=== PATIENT | male | born 1990 | race Caucasian/White ===

== ENCOUNTER 2016-12-01 21:01 | Emergency (ER) | payer SELFPAY ==
--- NOTE | 2016-12-01 21:31 | EDM.PDOC ---
ED HPI GENERAL MEDICAL PROBLEM - General Chief Complaint: Skin Complaint Stated Complaint: POSSIBLE CYST/LOWER ABDOMEN Time Seen by Provider: 12/01/16 21:26 Source of Information: Reports: Patient History Limitations: Reports: No Limitations - History of Present Illness INITIAL COMMENTS - FREE TEXT/NARRATIVE: HISTORY AND PHYSICAL: []26-year-old male presents with concerns over a cystic area to the lower abdomen History of Present Illness: []This has been present for at least 4 days some blood and green exudate was relieved yesterday Review of Systems: As per history of present illness and below otherwise all systems reviewed and negative. Past medical history: As per history of present illness and as reviewed below otherwise noncontributory. Surgical history: As per history of present illness and as reviewed below otherwise noncontributory. Social history: No reported history of drug or alcohol abuse. Family history: As per history of present illness and as reviewed below otherwise noncontributory. Physical exam: Alert and oriented gentleman who is in quite a bit of pain HEENT: Atraumatic, normocehpalic, pupils reactive, negative for conjunctival pallor or scleral icterus, mucous membranes moist, throat clear, neck supple, nontender, trachea midline. Lungs: Clear to auscultation, breath sounds equal bilaterally, chest non tender. Heart: S1S2, regular, negative for clicks, rubs, or JVD. Abdomen: Soft, nondistended, tender to lower pelvic area he has shaved in the past as a folliculitis present there is a large area 4 cm x 3 cm of erythema and tenderness. Negative for masses or hepatossplenmegaly. Negative for costovertebral tenderness. Pelvis: Stable nontender. Genitourinary: Deferred. Rectal: Deferred Extremities: Atraumatic, negative for cords or calf pain. Neurovascular unremarkable. Neuro: Awake, alert, oriented. Cranial nerves II through XII unremarkable. Cerebellum unremarkable. Motor and sensory unremarkable throughout. Exam nonfocal. Diagnostics: [] Therapeutics: [] Impression: [#1 shaving folliculitis #2 abscess] Plan: [Amoxicillin 875 twice a day 10 days Moist heat to this area to help draw it together Return when it starts coming to ahead and pustular material is noted] Definitive disposition and diagnosis as appropriate pending reevaluation and review of above. Onset: Gradual Duration: Day(s): (4), Getting Worse Location: Reports: Abdomen lower abd Pain Score (Numeric/FACES): 7 - Related Data Allergies Allergy/AdvReac Type Severity Reaction Status Date / Time latex Allergy Hives Verified 12/01/16 21:20 Penicillins Allergy Anaphylactic Verified 12/01/16 21:20 Shock Home Meds: Home Meds . [No Known Home Meds] 12/21/13 [History] Past Medical History - Past Health History Medical/Surgical History: Denies Medical/Surgical History - Past Surgical History Musculoskeletal Surgical History: Reports: Other (See Below) Other Musculoskeletal Surgeries/Procedures:: right thumb surgery,. right ankle surgery Social & Family History - Tobacco Use Smoking Status *Q: Never Smoker Years of Tobacco use: 10 Second Hand Smoke Exposure: No - Alcohol Use Days Per Week of Alcohol Use: 0 - Recreational Drug Use Recreational Drug Use: No ED ROS GENERAL - Review of Systems Review Of Systems: ROS reveals no pertinent complaints other than HPI. ED EXAM, SKIN/RASH Exam: See Below (see dictation) Course - Vital Signs Last Recorded V/S: Last Vital Signs Temp 36.9 C 12/01/16 21:20 Pulse 96 12/01/16 21:20 Resp 18 12/01/16 21:20 BP 161/94 H 12/01/16 21:20 Pulse Ox 100 12/01/16 21:20 Departure - Departure Time of Disposition: 21:30 Disposition: Home, Self-Care 01 Condition: good Clinical Impression: Abscess, Folliculitis - Discharge Information Forms: ED Department Discharge Additional Instructions: The following information is given to patients seen in the emergency department who are being discharged to home. This information is to outline your options for follow-up care. We provide all patients seen in our emergency department with a follow-up referral. The need for follow-up, as well as the timing and circumstances, are variable depending upon the specifics of your emergency department visit. If you don't have a primary care physician on staff, we will provide you with a referral. We always advise you to contact your personal physician following an emergency department visit to inform them of the circumstance of the visit and for follow-up with them and/or the need for any referrals to a consulting specialist. The emergency department will also refer you to a specialist when appropriate. This referral assures that you have the opportunity for followup care with a specialist. All of these measure are taken in an effort to provide you with optimal care, which includes your followup. Under all circumstances we always encourage you to contact your private physician who remains a resource for coordinating your care. When calling for followup care, please make the office aware that this follow-up is from your recent emergency room visit. If for any reason you are refused follow-up, please contact the [facility] emergency department at and asked to speak to the emergency department charge nurse. Moist heat to this area to help draw the abscess together Return in 3 days for reevaluation
[2016-12-02 00:09] VITALS: BP 150/85
== END 2016-12-01 21:51 | disposition home or self-care (01) ==
LOC: MW.ED 21:01
DX: L02.211 Cutaneous abscess of abdominal wall (principal); L73.9 Follicular disorder, unspecified; Z98.890 Other specified postprocedural states; Z91.040 Latex allergy status; Z88.0 Allergy status to penicillin
CPT/HCPCS: 99282

== ENCOUNTER 2016-12-06 08:09 | Day surgery (SDC) | payer SELFPAY ==
[~2016-12-06 08:09] MED LIST: Bupivacaine 0.5% 30 ML SDV ONE; Lactated Ringers 1,000 ML IV SCH; Sodium Chloride 0.9% 10 ML Syringe FLUSH PRN; Sodium Chloride 0.9% 2.5 ML Syringe FLUSH PRN; cefOXitin 1 GM in Premix Bag 1 BAG IV ONE
[2016-12-06] MEDS ORDERED: Propofol 200 MG/20 ML SDV ONE (08:25)
[2016-12-06] MEDS ORDERED: Rocuronium 10 MG/ML 10 ML Syringe ONE (08:25)
[2016-12-06] MEDS ORDERED: Succinylcholine/Normal Saline 200 MG/10 ML Syringe ONE (08:25)
[2016-12-06] MEDS ORDERED: Lidocaine 2% 5 ML SDV ONE (08:25)
[2016-12-06] MEDS ORDERED: fentaNYL 100 MCG/2 ML SDV ONE (08:25)
[2016-12-06] MEDS ORDERED: Midazolam 1 MG/ML 2 ML SDV ONE (08:25)
--- NOTE | 2016-12-06 08:48 | PCM.PREANE ---
Preanesthetic Assessment - Anesthesia/Transfusion/Family Hx Anesthesia History: Prior Anesthesia Without Reaction Family History of Anesthesia Reaction: No Transfusion History: No Prior Transfusion(s) Intubation History: Unknown - Review of Systems General: No Symptoms Pulmonary: No Symptoms Cardiovascular: No Symptoms Gastrointestinal: No symptoms Neurological: No Symptoms Other: Reports: None - Physical Assessment Height: 1.73 m Weight: 77.564 kg ASA Class: 1 Mental Status: Alert & Oriented x3 Airway Class: Mallampati = 2 Dentition: Reports: Normal Dentition Thyro-Mental Finger Breadths: 3 Mouth Opening Finger Breadths: 2 ROM/Head Extension: Full Lungs: Clear to auscultation, Normal respiratory effort Cardiovascular: Regular Rate, Regular Rhythm - Allergies Allergies/Adverse Reactions: Allergies Allergy/AdvReac Type Severity Reaction Status Date / Time latex Allergy Hives Verified 12/01/16 21:20 Penicillins Allergy Anaphylactic Verified 12/01/16 21:20 Shock - Blood Blood Available: No - Anesthesia Plan Pre-Op Medication Ordered: None - Acknowledgements Anesthesia Type Planned: MAC Pt an Appropriate Candidate for the Planned Anesthesia: Yes Alternatives and Risks of Anesthesia Discussed w Pt/Guardian: Yes Pt/Guardian Understands and Agrees with Anesthesia Plan: Yes PreAnesthesia Questionnaire - Past Health History Medical/Surgical History: Denies Medical/Surgical History HEENT History: Reports: Allergic Rhinitis, Other (See Below) (h/o sinusitis) Cardiovascular History: Reports: None Respiratory History: Reports: None Gastrointestinal History: Reports: None Genitourinary History: Reports: None Musculoskeletal History: Reports: Fracture Other Musculoskeletal History: hx of fx ankle Neurological History: Reports: None Psychiatric History: Reports: None Endocrine/Metabolic History: Reports: None Hematologic History: Reports: None Immunologic History: Reports: None Oncologic (Cancer) History: Reports: None Dermatologic History: Reports: None - Past Surgical History Head Surgeries/Procedures: Reports: None HEENT Surgical History: Reports: None Cardiovascular Surgical History: Reports: None Respiratory Surgical History: Reports: None GI Surgical History: Reports: None Male Surgical History: Reports: None Endocrine Surgical History: Reports: None Neurological Surgical History: Reports: None Musculoskeletal Surgical History: Reports: Amputation, ORIF Other Musculoskeletal Surgeries/Procedures:: ORIF right ankle with pin placement , repair if partial amputation of thumb, then partial amputation of thumb with skin graft Oncologic Surgical History: Reports: None Dermatological Surgical History: Reports: None - SUBSTANCE USE Smoking Status *Q: Never Smoker Second Hand Smoke Exposure: No Days Per Week of Alcohol Use: 0 Recreational Drug Use History: No - HOME MEDS Home Medications: Home Meds . [No Known Home Meds] 12/21/13 [History] Clindamycin HCl 300 mg PO Q6H 12/05/16 [History] oxyCODONE HCl/Acetaminophen [Percocet 5-325 mg Tablet] 1 tab PO Q6H PRN [History] - CURRENT (IN HOUSE) MEDS Current Meds: Current Medications Lactated Ringer's (Ringers, Lactated) 1,000 mls @ 125 mls/hr IV ASDIRECTED RAMILA Last Admin: 12/06/16 08:35 Dose: 125 mls/hr Sodium Chloride (Saline Flush) 10 ml FLUSH ASDIRECTED PRN PRN Reason: Keep Vein Open Sodium Chloride (Saline Flush) 2.5 ml FLUSH ASDIRECTED PRN PRN Reason: Keep Vein Open Discontinued Medications Bupivacaine HCl (Marcaine 0.5%) Confirm Administered Dose 30 ml .ROUTE .STK-MED ONE Stop: 12/06/16 06:53 Fentanyl (Sublimaze) Confirm Administered Dose 100 mcg .ROUTE .STK-MED ONE Stop: 12/06/16 08:26 Cefoxitin Sodium 1 gm/ Premix 50 mls @ 100 mls/hr IV ONETIME ONE Stop: 12/05/16 17:40 Lidocaine (Xylocaine-Mpf 2%) Confirm Administered Dose 5 ml .ROUTE .STK-MED ONE Stop: 12/06/16 08:26 Midazolam HCl (Versed 1 Mg/Ml) Confirm Administered Dose 2 mg .ROUTE .STK-MED ONE Stop: 12/06/16 08:26 Propofol (Diprivan 20 Ml) Confirm Administered Dose 200 mg .ROUTE .STK-MED ONE Stop: 12/06/16 08:26 Rocuronium [place] (Zemuron) Confirm Administered Dose 100 mg .ROUTE .STK-MED ONE Stop: 12/06/16 08:26 Succinylcholine Chloride (Succinylcholine In Ns Pf) Confirm Administered Dose 200 mg .ROUTE .STK-MED ONE Stop: 12/06/16 08:26
[2016-12-06] MEDS ORDERED: Lidocaine 1% with EPINEPHrine 1:100,000 20 ML MDV ONE (10:09)
[2016-12-06] MEDS ORDERED: Ketorolac 30 MG/ML SDV ONE (10:44)
[2016-12-06] MEDS ORDERED: Ondansetron 4 MG/2 ML SDV ONE (10:44)
--- NOTE | 2016-12-06 11:06 | PCM.OPNOTE ---
- General Post-Op/Procedure Note Date of Surgery/Procedure: 12/06/16 Operative Procedure(s): Incision and drainage of suprapubic abscess Findings: 4 x 3 cm abscess in the subcutaenous space over the suprapubic area. Pre Op Diagnosis: abscess Post-Op Diagnosis: same Anesthesia Technique: MAC Primary Surgeon: Emilia Kaminski Condition: Good
[2016-12-06 11:31] VITALS: BP 121/76
--- NOTE | 2016-12-06 13:35 | OR ---
SURGEON: AHSAN STACK MD DATE OF PROCEDURE: 12/06/2016 PREOPERATIVE DIAGNOSIS: Suprapubic abscess. POSTOPERATIVE DIAGNOSIS: Suprapubic abscess. PROCEDURE PERFORMED: Incision and drainage of suprapubic abscess. ANESTHESIA: General endotracheal anesthesia. FLUIDS: See anesthesia record. ESTIMATED BLOOD LOSS: 5 mL. FINDINGS: A 3 x 4 cm cavity filled with purulent material. This was within the subcutaneous space. COMPLICATIONS: None. INDICATIONS: The patient is a 26-year-old male, who regularly shaves his pubic area. Last week, he developed redness, swelling, pain, and erythema over the site. He presented to the emergency room and was given antibiotics to treat the wound. He followed up with me two days ago in clinic and was found to have increased redness, swelling, and no active drainage from the wound site. The area was too tender to drain in office, so I switched the patient's antibiotics and scheduled him to have an incision and drainage under monitored anesthesia care. The patient and I discussed the procedure as well as expected perioperative course. We discussed the risks, including bleeding, increased infection as well as damage to surrounding structures. The patient verbalized understanding and wishes to proceed. PROCEDURE IN DETAIL: The patient was brought into the operating room and placed on the OR table in supine position. A time-out was completed verifying the patient's name, age, date of , allergies, and procedure to be performed. Monitored anesthesia care was induced. The lower abdomen and groin were prepped and draped in the usual standard fashion. I anesthetized the area overlying the abscess cavity with 1% lidocaine. A hemostat was then inserted into the pinpoint area of drainage used to explore the wound cavity. It tracked medially. I made a 4 cm incision over the top of this abscess cavity using a 15 blade. A large amount of purulent material with cellular debris was encountered. This was suctioned out. Wound cultures were obtained previously in the clinic, so no cultures were obtained today. I made a vertical incision along the midline of my horizontal incision. I took off the edges of the cruciate incision I had made to open up the roof of the cavity. The wound was debrided bluntly and copiously irrigated with normal saline. Cautery was used to obtain hemostasis. The wound was then packed with 1 inch iodoform gauze and covered it with a large Tegaderm. All counts were complete and correct at the end the case. The patient tolerated the procedure well and was taken to the PACU in stable condition. DAMARIS ADLER /[id number] MTDD
== END 2016-12-06 11:30 | disposition home or self-care (01) ==
LOC: MERGE 08:09 → MW.SDS 08:09 → EEVIPCON 08:09 → MW.SDS 11:30
PROVIDERS: ATTEND Surgery
PROC: 0J9B0ZZ Drainage of Perineum Subcutaneous Tissue and Fascia, Open Approach (ICD-10-PCS; principal; 2016-12-06)
DX: L02.818 Cutaneous abscess of other sites (principal); J32.9 Chronic sinusitis, unspecified; Z88.0 Allergy status to penicillin; Z91.040 Latex allergy status; Z79.51 Long term (current) use of inhaled steroids; Z98.890 Other specified postprocedural states
CPT/HCPCS: 10060; J0694; J1885; J2250; J2405; J3010; J7120; 00400; J2704

== ENCOUNTER 2019-04-23 19:49 | Emergency (ER) | payer BC ==
--- NOTE | 2019-04-23 20:38 | EDM.PDOC ---
ED HPI GENERAL MEDICAL PROBLEM - General Chief Complaint: ENT Problem Stated Complaint: SINUS INFECTION Time Seen by Provider: 04/23/19 19:58 Source of Information: Reports: Patient History Limitations: Reports: No Limitations - History of Present Illness INITIAL COMMENTS - FREE TEXT/NARRATIVE: HISTORY AND PHYSICAL: History of present illness: Patient is a 28-year-old male presents to the ED today with concern of sinus pain and congestion 2 weeks. Patient states about a week and a half ago he was seen at [facility] and given azithromycin. Patient states he initially had some relief from the sinuses but the symptoms quickly returned with a stuffy nose, sinus pain and congestion. Patient states he does have a history of sinus infections in the past. Patient states he also has a sore throat but does feel that his sinuses are dripping down the back of his throat causing some of his symptoms. Patient states he's been taking [id number] cold medication without relief of symptoms. Patient denies any other symptoms or concerns. Patient denies fever, chills, chest pain, shortness of breath, or cough. Denies headache, neck stiff ness, change in vision, syncope, or near syncope. Denies nausea, vomiting, abdominal pain, diarrhea, constipation, or dysuria. Has not noted any blood in urine or stool. Patient has been eating and drinking appropriately. Review of systems: As per history of present illness and below otherwise all systems reviewed and negative. Past medical history: As per history of present illness and as reviewed below otherwise noncontributory. Surgical history: As per history of present illness and as reviewed below otherwise noncontributory. Social history: See social history for further information Family history: As per history of present illness and as reviewed below otherwise noncontributory. Physical exam: General: Patient is alert, oriented, and in no acute distress. Patient sitting comfortably on exam table. HEENT: Atraumatic, normocephalic, pupils equal and reactive bilaterally, negative for conjunctival pallor or scleral icterus, mucous membranes moist, TMs normal bilaterally, throat clear, neck supple, nontender, trachea midline. No drooling or trismus noted. No meningeal signs. No hot potato voice noted. Patient has frontal and maxillary sinus pain to palpation. Lungs: Clear to auscultation, breath sounds equal bilaterally, chest nontender. Heart: S1S2, regular rate and rhythm without overt murmur Abdomen: Soft, nondistended, nontender. Negative for masses or hepatosplenomegaly. Negative for costovertebral tenderness. Pelvis: Stable nontender. Genitourinary: Deferred. Rectal: Deferred. Skin: Intact, warm, dry. No lesions or rashes noted. Extremities: Atraumatic, negative for cords or calf pain. Neurovascular unremarkable. Neuro: Awake, alert, oriented. Cranial nerves II through XII unremarkable. Cerebellum unremarkable. Motor and sensory unremarkable throughout. Exam nonfocal. Notes: Discussed the importance for follow-up with a primary care provider. Voices understanding and is agreeable to plan of care. Denies any further questions or concerns at this time. Diagnostics: Strep, Influenza Therapeutics: None Prescription: Doxycycline Impression: Acute sinusitis, frontal and maxillary Plan: 1. Take medication as prescribed. Also use [id number] Flonase as directed and as discussed. 2. You can also use ibuprofen and Tylenol as directed for pain and discomfort. 3. Follow up with her primary care provider as discussed. Return to the ED as needed and as discussed. Definitive disposition and diagnosis as appropriate pending reevaluation and review of above. throat Pain Score (Numeric/FACES): 6 - Related Data Allergies Allergy/AdvReac Type Severity Reaction Status Date / Time latex Allergy Hives Verified 12/01/16 21:20 Penicillins Allergy Anaphylactic Verified 12/01/16 21:20 Shock Home Meds: Home Meds valACYclovir [Valtrex] 0 mg PO ASDIRECTED 04/23/19 [History] Past Medical History - Past Health History Medical/Surgical History: Denies Medical/Surgical History HEENT History: Reports: Allergic Rhinitis Cardiovascular History: Reports: None Respiratory History: Reports: None Gastrointestinal History: Reports: None Genitourinary History: Reports: None Musculoskeletal History: Reports: None Other Musculoskeletal History: hx of fx ankle Neurological History: Reports: None Psychiatric History: Reports: None Endocrine/Metabolic History: Reports: None Hematologic History: Reports: None Immunologic History: Reports: None Oncologic (Cancer) History: Reports: None Dermatologic History: Reports: None - Past Surgical History Head Surgeries/Procedures: Reports: None HEENT Surgical History: Reports: Tonsillectomy Cardiovascular Surgical History: Reports: None Respiratory Surgical History: Reports: None GI Surgical History: Reports: None Male Surgical History: Reports: None Endocrine Surgical History: Reports: None Neurological Surgical History: Reports: None Musculoskeletal Surgical History: Reports: Amputation, Other (See Below), ORIF Oncologic Surgical History: Reports: None Dermatological Surgical History: Reports: None Social & Family History - Family History Family Medical History: Noncontributory - Tobacco Use Smoking Status *Q: Never Smoker Second Hand Smoke Exposure: No - Caffeine Use Caffeine Use: Reports: Soda - Recreational Drug Use Recreational Drug Use: No ED ROS GENERAL - Review of Systems Review Of Systems: ROS reveals no pertinent complaints other than HPI. ED EXAM, GENERAL - Physical Exam Exam: See Below (See dictation) Course - Vital Signs Last Recorded V/S: Last Vital Signs Temp 97.9 F 04/23/19 20:03 Pulse 77 04/23/19 20:03 Resp 18 04/23/19 20:03 BP 136/92 H 04/23/19 20:03 Pulse Ox 97 04/23/19 20:03 - Orders/Labs/Meds Orders: Active Orders 24 hr Category Date Time Status CULTURE STREP A CONFIRMATION [] Stat Lab 04/23/19 20:12 Results STREP SCRN A RAPID W CULT CONF [RM] Stat Lab 04/23/19 20:12 Results Departure - Departure Time of Disposition: 20:47 Disposition: Home, Self-Care 01 Clinical Impression: Acute sinusitis Qualifiers: Sinusitis location: maxillary Recurrence: not specified as recurrent Qualified Code(s): J01.00 - Acute maxillary sinusitis, unspecified - Discharge Information Referrals: PCP,None [Primary Care Provider] - Forms: ED Department Discharge Additional Instructions: The following information is given to patients seen in the emergency department who are being discharged to home. This information is to outline your options for follow-up care. We provide all patients seen in our emergency department with a follow-up referral. The need for follow-up, as well as the timing and circumstances, are variable depending upon the specifics of your emergency department visit. If you don't have a primary care physician on staff, we will provide you with a referral. We always advise you to contact your personal physician following an emergency department visit to inform them of the circumstance of the visit and for follow-up with them and/or the need for any referrals to a consulting specialist. The emergency department will also refer you to a specialist when appropriate. This referral assures that you have the opportunity for follow-up care with a specialist. All of these measure are taken in an effort to provide you with optimal care, which includes your follow-up. Under all circumstances we always encourage you to contact your private physician who remains a resource for coordinating your care. When calling for follow-up care, please make the office aware that this follow-up is from your recent emergency room visit. If for any reason you are refused follow-up, please contact the [facility] Emergency Department at and asked to speak to the emergency department charge nurse. [facility] [address] [place] [id number] [address] [address] 1. Take medication as prescribed. Also use [id number] Flonase as directed and as discussed. 2. You can also use ibuprofen and Tylenol as directed for pain and discomfort. 3. Follow up with her primary care provider as discussed. Return to the ED as needed and as discussed. - My Orders Last 24 Hours: My Active Orders 04/23/19 20:12 CULTURE STREP A CONFIRMATION [RM] Stat STREP SCRN A RAPID W CULT CONF [] Stat - Assessment/Plan Last 24 Hours: My Active Orders 04/23/19 20:12 CULTURE STREP A CONFIRMATION [RM] Stat STREP SCRN A RAPID W CULT CONF [] Stat
[2019-04-23 21:04] VITALS: BP 144/89; PULSE 88
== END 2019-04-23 20:55 | disposition home or self-care (01) ==
LOC: MW.ED 19:49
DX: J01.00 Acute maxillary sinusitis, unspecified (principal); J01.10 Acute frontal sinusitis, unspecified; Z91.040 Latex allergy status; Z88.0 Allergy status to penicillin
CPT/HCPCS: 87081; 87804; 87880-QW; 99283

== ENCOUNTER 2019-09-10 02:34 | Emergency (ER) | payer BC, OTHER ==
[2019-09-10 02:52] VITALS: PULSE 116
--- NOTE | 2019-09-10 03:02 | EDM.PDOC ---
ED HPI GENERAL MEDICAL PROBLEM - General Chief Complaint: ENT Problem Stated Complaint: SINUS INFECTION, CHILLS Time Seen by Provider: 09/10/19 02:35 Source of Information: Reports: Patient History Limitations: Reports: No Limitations - History of Present Illness INITIAL COMMENTS - FREE TEXT/NARRATIVE: HISTORY OF PRESENT ILLNESS: Patient is a 29-year-old male who states that he started to feel ill on Sunday when the cold weather hit. And since that time is developed fevers chills, cough, body aches, shortness of breath, sore throat and sinus pressure. Patient has a history of frequent sinus infections. His last antibiotic was Levaquin. Tmax by home reading was 101.5. Denies any rash or neck stiffness. No cp or dyspnea. No abdominal pain, vomiting or diarrhea. No urinary symptoms. No known recent contact with COVID-19. No recent travel. REVIEW OF SYSTEMS: Other than the symptoms associated with the present events, the following is reported with regard to recent health: General: (+) fever. HENT: (+) congestion. Respiratory: (+) cough. Cardiovascular: (-) chest pain. GI: (-) abdominal pain. : (-) urinary complaints. Musculoskeletal: (+) generalized myalgias Endocrine: (-) generalized weakness. Neurological: (-) localized weakness. Skin: (-) rash PAST MEDICAL HISTORY: reviewed as per nursing notes SOCIAL HISTORY: reviewed as per nursing notes, MEDICATIONS: Per nurse's note ALLERGIES: Per nurse's note, reviewed by me PHYSICAL EXAMINATION: GENERALIZED APPEARANCE: well developed, well nourished in mild distress VITAL SIGNS: Per nurse's note, reviewed by me SKIN: Warm, dry; (-) cyanosis; (-) rash. HEAD: (-) scalp swelling, (-) tenderness. EYES: (-) conjunctival pallor, (-) scleral icterus. (+) bilateral maxillary and frontal sinus tenderness without facial swelling or erythema ENMT: (-) stridor; mucous membranes moist. mild pharyngeal erythema. uvula midline. no phonation changes. no trismus. airway patent. NECK: (-) tenderness, (-) stiffness, no meningismus CHEST AND RESPIRATORY: (-) rales, (-) rhonchi, (-) wheezes; breath sounds equal bilaterally. HEART AND CARDIOVASCULAR: (-) irregularity; (-) murmur, (-) gallop. ABDOMEN AND GI: Soft; (-) tenderness, (-) guarding, (-) rebound, (-) palpable masses, EXTREMITIES: (-) deformity, (-) edema. NEURO AND PSYCH: Alert. Cranial nerves grossly intact; strength symmetric. gait steady DIAGNOSTICS: strep neg influenza neg CXR as read by radiologist, reviewed by myself COVID-19: pending EMERGENCY DEPARTMENT COURSE AND TREATMENT: Patient's condition remained stable during Emergency Department evaluation. Symptoms of viral illness. As he has had documented fever at home with cough shortness of breath will test for COVID19. He understands that he must self quarantine until the test is resulted. Patient with fever and sinus tenderness for 3 days therefore decision made to start antibiotics for sinusitis as I cannot exclude bacterial etiology. Will start on doxycycline. Given discharge precautions. PLAN AND FOLLOW-UP: Patient received written and verbal instructions regarding this condition. Return to ED immediately with any new or worsening symptoms. Follow up to be arranged by patient with pcp and ENT in 1-2 days for further evaluation. Given discharge precautions. patient expressed verbal understanding. Given referral to ENT by engineer technical staff bodyaches Pain Score (Numeric/FACES): 6 - Related Data Allergies Allergy/AdvReac Type Severity Reaction Status Date / Time latex Allergy Hives Verified 09/10/19 02:44 Penicillins Allergy Anaphylactic Verified 09/10/19 02:44 Shock Home Meds: Home Meds valACYclovir [Valtrex] 0 mg PO ASDIRECTED 04/23/19 [History] Doxycycline [Vibramycin] 100 mg PO BID 7 Days #14 tab 09/10/19 [Rx] Past Medical History - Past Health History Medical/Surgical History: Denies Medical/Surgical History HEENT History: Reports: Allergic Rhinitis Cardiovascular History: Reports: None Respiratory History: Reports: None Gastrointestinal History: Reports: None Genitourinary History: Reports: None Musculoskeletal History: Reports: None Other Musculoskeletal History: hx of fx ankle Neurological History: Reports: None Psychiatric History: Reports: None Endocrine/Metabolic History: Reports: None Hematologic History: Reports: None Immunologic History: Reports: None Oncologic (Cancer) History: Reports: None Dermatologic History: Reports: None - Past Surgical History Head Surgeries/Procedures: Reports: None HEENT Surgical History: Reports: Tonsillectomy Cardiovascular Surgical History: Reports: None Respiratory Surgical History: Reports: None GI Surgical History: Reports: None Male Surgical History: Reports: None Endocrine Surgical History: Reports: None Neurological Surgical History: Reports: None Musculoskeletal Surgical History: Reports: Amputation, Other (See Below), ORIF Oncologic Surgical History: Reports: None Dermatological Surgical History: Reports: None Social & Family History - Family History Family Medical History: Noncontributory - Caffeine Use Caffeine Use: Reports: Soda ED ROS GENERAL - Review of Systems Review Of Systems: See Below (see dictation) ED EXAM, GENERAL - Physical Exam Exam: See Below (see dictation) Course - Vital Signs Last Recorded V/S: Last Vital Signs Temp 99.6 F 09/10/19 02:44 Pulse 116 H 09/10/19 02:44 Resp 22 H 09/10/19 02:44 BP 151/104 H 09/10/19 02:44 Pulse Ox 94 L 09/10/19 02:44 - Orders/Labs/Meds Orders: Active Orders 24 hr Category Date Time Status CORONAVIRUS (COVID-19) PCR [MREF] Stat Lab 09/10/19 03:13 Ordered CULTURE STREP A CONFIRMATION [] Stat Lab 09/10/19 03:00 Results STREP SCRN A RAPID W CULT CONF [RM] Stat Lab 09/10/19 03:00 Results Acetaminophen [Tylenol] Med 09/10/19 03:39 Once 650 mg PO NOW ONE Isolation [COMM] Routine Oth 09/10/19 02:40 Active Medication Orders Acetaminophen (Tylenol) 650 mg PO NOW ONE Stop: 09/10/19 03:40 Meds: Medications Generic Name Dose Route Start Last Admin Trade Name Abhilash PRN Reason Stop Dose Admin Acetaminophen 650 mg 09/10/19 03:39 Tylenol PO 09/10/19 03:40 NOW ONE Departure - Departure Time of Disposition: 03:33 Disposition: Home, Self-Care 01 Condition: Good Clinical Impression: Sinusitis, Viral illness - Discharge Information *PRESCRIPTION DRUG MONITORING PROGRAM REVIEWED*: Not Applicable *COPY OF PRESCRIPTION DRUG MONITORING REPORT IN PATIENT ANNABELLA: Not Applicable Prescriptions: Doxycycline [Vibramycin] 100 mg PO BID 7 Days #14 tab Instructions: Viral Respiratory Infection, [id number], Sinusitis, Adult, Easy -to-Read Referrals: Alexus Wilks MD [Primary Care Provider] - 1 Day Forms: ED Department Discharge Additional Instructions: The following information is given to patients seen in the emergency department who are being discharged to home. This information is to outline your options for follow-up care. We provide all patients seen in our emergency department with a follow-up referral. The need for follow-up, as well as the timing and circumstances, are variable depending upon the specifics of your emergency department visit. If you don't have a primary care physician on staff, we will provide you with a referral. We always advise you to contact your personal physician following an emergency department visit to inform them of the circumstance of the visit and for follow-up with them and/or the need for any referrals to a consulting specialist. The emergency department will also refer you to a specialist when appropriate. This referral assures that you have the opportunity for follow-up care with a specialist. All of these measure are taken in an effort to provide you with optimal care, which includes your follow-up. Under all circumstances we always encourage you to contact your private physician who remains a resource for coordinating your care. When calling for follow-up care, please make the office aware that this follow-up is from your recent emergency room visit. If for any reason you are refused follow-up, please contact the [facility] Emergency Department at and asked to speak to the emergency department charge nurse. Sepsis Event Note - Evaluation Sepsis Screening Result: No Definite Risk - Focused Exam Vital Signs: Vital Signs Temp Pulse Resp BP Pulse Ox 09/10/19 02:44 99.6 F 116 H 22 H 151/104 H 94 L Date Exam was Performed: 09/10/19 Time Exam was Performed: 03:41 - My Orders Last 24 Hours: My Active Orders 09/10/19 02:40 Isolation [COMM] Routine 09/10/19 03:00 CULTURE STREP A CONFIRMATION [RM] Stat STREP SCRN A RAPID W CULT CONF [RM] Stat 09/10/19 03:13 CORONAVIRUS (COVID-19) PCR [MREF] Stat 09/10/19 03:39 Acetaminophen [Tylenol] 650 mg PO NOW ONE - Assessment/Plan Last 24 Hours: My Active Orders 09/10/19 02:40 Isolation [COMM] Routine 09/10/19 03:00 CULTURE STREP A CONFIRMATION [RM] Stat STREP SCRN A RAPID W CULT CONF [RM] Stat 09/10/19 03:13 CORONAVIRUS (COVID-19) PCR [MREF] Stat 09/10/19 03:39 Acetaminophen [Tylenol] 650 mg PO NOW ONE
--- NOTE | 2019-09-10 03:23 | CR ---
INDICATION: chest pain TECHNIQUE: Chest 1 view. COMPARISON: None. FINDINGS: Cardiovascular and mediastinum: Heart size and vasculature are normal in caliber and appearance. Mediastinum is within normal limits. Lungs and pleural space: Lungs are clear. No sign of infiltrate or mass. No sign of pleural effusion. No pneumothorax. Bones and soft tissues: No significant findings. IMPRESSION: Unremarkable chest. Dictated by: Billy Donaldson MD @ 09/10/2019 03:21:02 (Electronically Signed)
[2019-09-10] MEDS ORDERED: Acetaminophen 325 MG Tab PO ONE (03:39)
[2019-09-10 04:15] VITALS: BP 126/87
== END 2019-09-10 04:07 | disposition home or self-care (01) ==
LOC: MW.ED 02:34
DX: J32.9 Chronic sinusitis, unspecified (principal); B34.9 Viral infection, unspecified; Z88.0 Allergy status to penicillin; Z91.040 Latex allergy status; Z20.828 Contact with and (suspected) exposure to other viral communicable diseases
CPT/HCPCS: 71045; 71045-26; 87081; 87804; 87880-QW; 99283; 99283-25; U0001; U0002

== ENCOUNTER 2022-05-22 16:50 | Emergency (ER) | payer SELFPAY ==
[2022-05-22] MEDS ORDERED: Azithromycin 250 MG Tab PO ONE (17:35)
[2022-05-22 17:49] VITALS: BP 144/90; PULSE 97
== END 2022-05-22 17:49 | disposition home or self-care (01) ==
LOC: MW.ED 16:50
DX: J32.9 Chronic sinusitis, unspecified (principal); Z88.0 Allergy status to penicillin; Z91.040 Latex allergy status
CPT/HCPCS: 99283; A9270

== ENCOUNTER 2022-09-17 22:08 | Emergency (ER) | payer SELFPAY ==
[2022-09-17] MEDS ORDERED: Sodium Chloride 0.9% 1,000 ML IV ONE (22:53)
[2022-09-17] MEDS ORDERED: Sodium Chloride 0.9% 2.5 ML Syringe FLUSH PRN (22:53)
[2022-09-17] MEDS ORDERED: Sodium Chloride 0.9% 10 ML Syringe FLUSH PRN (22:53)
[2022-09-17] MEDS ORDERED: Ibuprofen 600 MG Tab PO ONE (22:54)
[2022-09-17] MEDS ORDERED: Acetaminophen 325 MG Tab PO ONE (22:54)
[2022-09-17] MEDS ORDERED: Doxycycline 100 MG in Sodium Chloride 0.9% 100 ML IV SCH (23:00)
[2022-09-17 23:51] LABS: CARBON DIOXIDE,CO2 25.5 mmol/L (21.0-32.0); POTASSIUM,K 3.9 mmol/L (3.5-5.1)
[2022-09-18 00:03] LABS: CORONAVIRUS COVID-19 NAA NEGATIVE (NEGATIVE); INFLUENZA A NAA NEGATIVE (NEGATIVE); INFLUENZA B NAA NEGATIVE (NEGATIVE)
[2022-09-18 00:42] VITALS: BP 121/70; PULSE 86
== END 2022-09-18 01:03 | disposition home or self-care (01) ==
LOC: MW.ED 22:08
DX: A69.20 Lyme disease, unspecified (principal); Z91.040 Latex allergy status; Z88.0 Allergy status to penicillin; Z20.822 Contact with and (suspected) exposure to COVID-19
CPT/HCPCS: 0240U; 36415; 80053; 81003; 83605; 85025; 86618; 87040; 87476; 96365; 99283; A9270; J3490; J7030; J7050